=== PATIENT | male | born 1945 | race Caucasian/White ===

== ENCOUNTER 2022-05-15 06:35 | Day surgery (SDC) | payer BC ==
[2022-05-14 11:53] LABS: BASOPHILS # (AUTO) 0.1 X10'3 (0-0.2); EOSINOPHILS # (AUTO) 0.3 X10'3 (0-0.9); EOSINOPHILS % (AUTO) 3.5 % (0-6); HEMATOCRIT 40.4 % (42.0-52.0); HEMOGLOBIN 13.5 g/dl (14.0-17.9); LYMPHOCYTES # (AUTO) 1.9 X10'3 (1.1-4.8); LYMPHOCYTES % (AUTO) 22.7 % (21-51); MEAN CORPUSCULAR HEMOGLOBIN 30.6 PG (27.0-31.0); MEAN CORPUSCULAR HGB CONC 33.5 g/dL (33.0-36.5); MEAN CORPUSCULAR VOLUME 91.4 FL (78-98); MEAN PLATELET VOLUME 7.2 FL (7.4-10.4); MONOCYTES # (AUTO) 0.8 X10'3 (0-0.9); MONOCYTES % (AUTO) 9.1 % (2-12); NEUTROPHILS # (AUTO) 5.5 X10'3 (1.8-7.7); NEUTROPHILS % (AUTO) 63.7 % (42-75); PLATELET COUNT 304 X10'3 (140-440); RED BLOOD COUNT 4.42 X10'6 (4.70-6.10); RED CELL DISTRIBUTION WIDTH 13.9 % (11.5-14.5); WHITE BLOOD COUNT 8.6 X10'3 (4.5-11.0)
[2022-05-14 12:08] LABS: ALANINE AMINOTRANSFERASE 35 U/L (12-78); ALBUMIN 3.9 G/DL (3.4-5.0); ALBUMIN/GLOBULIN RATIO 1.1 (1.1-1.5); ALKALINE PHOSPHATASE 49 IU/L (46-116); ANION GAP 10 (8-16); APTT 27 SECONDS (22-32); ASPARTATE AMINO TRANSFERASE 22 U/L (10-37); BILIRUBIN,TOTAL 0.7 MG/DL (0.1-1.0); BLOOD UREA NITROGEN 30 MG/DL (7-18); BUN/CREATININE RATIO 21.6 (5.4-32.0); CALCIUM 9.1 MG/DL (8.5-10.1); CHLORIDE 102 MMOL/L (99-107); CREATININE 1.39 MG/DL (0.60-1.10); GLUCOSE 124 MG/DL (70-104); POTASSIUM 3.9 MMOL/L (3.5-5.1); SODIUM 137 MMOL/L (135-145); TOTAL CARBON DIOXIDE 24.9 MMOL/L (24-32); TOTAL PROTEIN 7.5 G/DL (6.4-8.2); eGFR 50 ML/MIN
[~2022-05-15] VITALS: Ht 165.1 cm; Wt 113.2 kg
[2022-05-15] VITALS (13 sets, daily range): BP systolic 129–166; BP diastolic 63–96
[2022-05-15] MEDS ORDERED: nitroGLYCERIN 0.4mg SUBLingual tab SL PRN ×2 (06:50→11:00)
[2022-05-15] MEDS ORDERED: diphenhydrAMINE 25mg capsule PO PRN (06:50)
[2022-05-15] MEDS ORDERED: LORazepam 0.5 MG tablet PO PRN (06:50)
[2022-05-15] MEDS ORDERED: normal saline 1,000 ML IV SCH (06:50)
[2022-05-15] MEDS ORDERED: dextrose 50%-water 50ml dispensing syringe IV PRN ×2 (06:55)
[2022-05-15] MEDS ORDERED: MESSAGE TO PHARMACY PO ONE (06:55)
[2022-05-15] MEDS ORDERED: DEXTROSE 15 GM of carb/4 tabs (each vial/BOTTLE has 4 tablets) PO PRN ×2 (06:55)
[2022-05-15] MEDS ORDERED: insulin Lispro (HumaLOG) vial - multi-dose SQ SCH (06:55)
[2022-05-15] MEDS ORDERED: glucagon, human recombinant 1mg kit SUBCUT PRN (06:55)
[2022-05-15] MEDS ORDERED: METF-1203 PO (07:00)
[2022-05-15] MEDS ORDERED: METO50TA16 PO (07:00)
[2022-05-15] MEDS ORDERED: VALA500T41 PO (07:00)
[2022-05-15] MEDS ORDERED: ATOR20TA66 PO (07:00)
[2022-05-15] MEDS ORDERED: LOSA50TA64 PO (07:00)
[2022-05-15] MEDS ORDERED: ACET-3209 PO (07:00)
[2022-05-15] MEDS ORDERED: HYDR25TA4 PO (07:00)
[2022-05-15] MEDS ORDERED: fentaNYL/PF 50MCG/1 ML 2ML syringe ONE (08:08)
[2022-05-15] MEDS ORDERED: iohexol 350MG/ML 100ml bottle IV ONE (08:09)
[2022-05-15] MEDS ORDERED: heparin 1,000 UNITS/NS 500ml 500 ML ONE ×3 (08:09→09:48)
[2022-05-15] MEDS ORDERED: LIDOcaine 1% 30ml preserv. free vial ONE (08:09)
[2022-05-15] MEDS ORDERED: midazolam 1 mg/ML 2ml injection ONE (08:09)
[2022-05-15] MEDS ORDERED: iohexol 350 MG/ML 50ML vial IV ONE (09:36)
[2022-05-15] MEDS ORDERED: hydrALAZINE 20mg/ml inj. IV ONE (10:18)
[2022-05-15] MEDS ORDERED: HYDROcodone/acetaminophen 10/325mg tab PO PRN (11:00)
[2022-05-15] MEDS ORDERED: normal saline 1000ml 1,000 ML IV SCH (11:00)
[2022-05-15] MEDS ORDERED: ondansetron/PF 4mg/2ml inj IV PRN (11:00)
[2022-05-15] MEDS ORDERED: HYDROcodone/acetaminophen 5mg/325mg tablet PO PRN (11:00)
[2022-05-15] MEDS ORDERED: proCHLORperazine 10 MG/2 ml inj IV PRN (11:00)
[2022-05-15] MEDS ORDERED: OXAZEpam 15mg capsule PO PRN (11:00)
[2022-05-15] MEDS ORDERED: insulin glargine (Lantus) pen - multi-dose SQ SCH (21:00)
[2022-05-16] MEDS ORDERED: FLU VACC QS2022-23(6MOS UP)/PF 60 MCG/0.5 ML SYRINGE IMVAC ONE (13:45)
== END 2022-05-15 17:05 | disposition home or self-care (01) ==
LOC: SSTAY O 06:35
PROVIDERS: ATTEND Internal Medicine Cardiovascular Disease
DX: R94.39 Abnormal result of other cardiovascular function study (principal); I25.10 Atherosclerotic heart disease of native coronary artery without angina pectoris; I10 Essential (primary) hypertension; E11.9 Type 2 diabetes mellitus without complications; E78.5 Hyperlipidemia, unspecified; N40.1 Benign prostatic hyperplasia with lower urinary tract symptoms; E66.9 Obesity, unspecified; Z68.41 Body mass index [BMI] 40.0-44.9, adult; G47.30 Sleep apnea, unspecified; Z79.01 Long term (current) use of anticoagulants; Z79.899 Other long term (current) drug therapy; Z79.84 Long term (current) use of oral hypoglycemic drugs; Z88.0 Allergy status to penicillin; Z88.2 Allergy status to sulfonamides; Z98.890 Other specified postprocedural states; Z87.891 Personal history of nicotine dependence
CPT/HCPCS: 36415; 71046; 80053; 82948; 85025; 85610; 85730; 93458; 99152; 99153; C1760; C1769; J0360; J1644; J1815; J2250; J3010; J3490; J7030; Q0163; Q9967; 90686; A6258

== ENCOUNTER 2022-08-12 10:58 | Inpatient (IN) | payer BC ==
[2022-08-08 15:24] LABS: BASOPHILS # (AUTO) 0.1 X10'3 (0-0.2); EOSINOPHILS # (AUTO) 0.2 X10'3 (0-0.9); EOSINOPHILS % (AUTO) 3.1 % (0-6); LYMPHOCYTES # (AUTO) 1.7 X10'3 (1.1-4.8); LYMPHOCYTES % (AUTO) 22.4 % (21-51); MEAN CORPUSCULAR HEMOGLOBIN 30.6 PG (27.0-31.0); MEAN CORPUSCULAR HGB CONC 33.1 g/dL (33.0-36.5); MEAN CORPUSCULAR VOLUME 92.4 FL (78-98); MEAN PLATELET VOLUME 7.6 FL (7.4-10.4); MONOCYTES # (AUTO) 0.6 X10'3 (0-0.9); MONOCYTES % (AUTO) 7.5 % (2-12); NEUTROPHILS # (AUTO) 4.9 X10'3 (1.8-7.7); PRE OP HEMATOCRIT 41.1 % (42.0-52.0); PRE OP HEMOGLOBIN 13.6 g/dL (14.0-17.9); PRE OP PLATELET COUNT 265 X10'3 (140-440); RED BLOOD COUNT 4.45 X10'6 (4.70-6.10); RED CELL DISTRIBUTION WIDTH 14.2 % (11.5-14.5)
[2022-08-08 15:24] LABS: CLARITY,URINE CLEAR (Clear); COLOR,URINE YELLOW (Yellow); GLUCOSE, URINE NEGATIVE (Neg); KETONES,URINE NEGATIVE (Neg); LEUKOCYTE ESTERASE ,URINE NEGATIVE (Neg); NITRITES, URINE NEGATIVE (Neg); OCCULT BLOOD,URINE NEGATIVE (Neg); PROTEIN,URINE NEGATIVE (Neg); UROBILINOGEN,URINE 0.2 E.U/dL (0.2-1.0)
[2022-08-08 15:36] LABS: UA COLLECTION TYPE VOIDED
[2022-08-08 15:37] LABS: PRE OP PROTIME 10.6 SECONDS (9.0-12.0)
[2022-08-08 15:39] LABS: ALBUMIN 3.6 G/DL (3.4-5.0); ALKALINE PHOSPHATASE 47 IU/L (46-116); BLOOD UREA NITROGEN 30 MG/DL (7-18); BUN/CREATININE RATIO 20.5 (10.0-20.0); CALCIUM 8.4 MG/DL (8.5-10.1); CHLORIDE 106 MMOL/L (99-107); CREATININE 1.46 MG/DL (0.60-1.10); PRE OP ALT 29 U/L (30-65); PRE OP ANION GAP 11 (8-16); PRE OP AST 20 U/L (10-37); PRE OP BILIRUB, TOTAL 0.3 MG/DL (0.0-1.0); PRE OP GLUCOSE 158 MG/DL (70-104); PRE OP POTASSIUM 3.7 MMOL/L (3.4-5.1); PRE OP SODIUM 142 MMOL/L (135-145); TOTAL CARBON DIOXIDE 25.3 MMOL/L (24-32); TOTAL PROTEIN 7.1 G/DL (6.4-8.2); eGFR 47 ML/MIN
[2022-08-12] VITALS (12 sets, daily range): BP systolic 158–205; BP diastolic 63–97
[~2022-08-12] VITALS: Ht 165.1 cm; Wt 112.0 kg
[~2022-08-12 10:58] MED LIST: ATOR20TA66 PO; HYDR25TA4 PO; LOSA50TA64 PO; METF-1203 PO; METO50TA16 PO; VALA500T41 PO; cefazolin 2gm/D5W 100mL 100 ML IV ONE; famotidine 20mg tablet PO ONE; ringers solution, lacted 1,000 ML IV SCH
[2022-08-12] MEDS ORDERED: ROPIVAcaine 0.5% (5mg/ml) 30ml vial ONE ×2 (14:37→19:29)
[2022-08-12] MEDS ORDERED: ketorolac trometh. 30mg/ml inj. ONE (14:37)
[2022-08-12] MEDS ORDERED: vancomycin 1,000mg inj ONE (17:57)
[2022-08-12] MEDS ORDERED: tranexamic acid 100mg/ml inj. ONE (18:11)
[2022-08-12] MEDS ORDERED: ondansetron/PF 4mg/2ml inj IV PRN ×2 (18:45→19:10)
[2022-08-12] MEDS ORDERED: naloxone 0.4 mg/ml inj IV PRN (18:45)
[2022-08-12] MEDS ORDERED: diphenhydrAMINE 25mg capsule PO PRN (18:45)
[2022-08-12] MEDS ORDERED: acetaminophen 325mg tablet PO PRN (18:45)
[2022-08-12] MEDS: potassium cl 20mEq in 1/2 NS 1,000 ML IV SCH (18:45)
[2022-08-12] MEDS ORDERED: morphine 2 MG/ML inj. syringe IV PRN (19:10)
[2022-08-12] MEDS ORDERED: ringers solution, lacted 1,000 ML IV SCH (19:10)
[2022-08-12] MEDS ORDERED: proCHLORperazine 10 MG/2 ml inj IV PRN (19:10)
[2022-08-12] MEDS ORDERED: meperidine/PF 25mg/ml syringe IV PRN ×3 (19:10)
[2022-08-12] MEDS ORDERED: morphine 4 MG/ML inj SYRINge IV PRN (19:10)
[2022-08-12] MEDS ORDERED: fentaNYL/PF 50MCG/1 ML 2ML syringe ONE (19:15)
[2022-08-12] MEDS ORDERED: midazolam 1 mg/ML 2ml injection ONE (19:17)
[2022-08-12] MEDS ORDERED: rocuronium 10mg/ml inj IV ONE (20:57)
[2022-08-12] MEDS ORDERED: propofol inj 20 ML IV ONE (20:57)
[2022-08-12] MEDS ORDERED: sugammadex 200mg/2ml injection IV ONE (21:48)
--- NOTE | 2022-08-12 22:16 | NUR ---
Received from OR via , accompanied by Anesthesiologist DR BENITEZ and report given by Anesthesiolgist. VS ELEVATED. ON 10 LITERS WITH MASK AND LMA. IV 20G LEFT HAND. DRESSING AND BANDAGE WITH WRAP ON RIGHT SHOULDER
[2022-08-12] MEDS: labetalol 20mg/4ml (5mg/ml) syringe IV PRN ×4 (22:17→23:09)
[2022-08-12] MEDS ORDERED: hydrALAZINE 20mg/ml inj. IV PRN (22:35)
[2022-08-12] MEDS ORDERED: ipratropium/albuterol 3ml nebule NEB PRN (22:45)
--- NOTE | 2022-08-12 23:00 | NUR ---
BLOOD SUGAR IS 146
--- NOTE | 2022-08-12 23:09 | NUR ---
PER DR LEBRON GIVE PATIENT UP TP 30MG OF LABATELOL BEFORE STARTING HYDRALAZINE.
--- NOTE | 2022-08-12 23:26 | NUR ---
PATIENT MEETS DISCHARGE CRITERIA. VSS. BLOOD SUGAR 146. IV IS INTACT. TOOK HIM TO THE FLOOR WITH HIS C-PAP. NURSE AT BEDSIDE. BED LOWERED AND LOCKED WITH CALL LIGHT IN REACH Addendum: 08/12/22 at 2352 by Fanny Hancock RN Amended: Links added.
[2022-08-12] MEDS ORDERED: glucagon, human recombinant 1mg kit SUBCUT PRN (23:45)
[2022-08-12] MEDS ORDERED: insulin Lispro (HumaLOG) vial - multi-dose SQ SCH (23:45)
[2022-08-12] MEDS ORDERED: MESSAGE TO PHARMACY PO ONE (23:45)
[2022-08-12] MEDS ORDERED: amLODIPine 5mg tablet PO ONE (23:45)
[2022-08-12] MEDS ORDERED: dextrose 50%-water 50ml dispensing syringe IV PRN ×2 (23:45)
[2022-08-12] MEDS ORDERED: DEXTROSE 15 GM of carb/4 tabs (each vial/BOTTLE has 4 tablets) PO PRN ×2 (23:45)
[2022-08-13] VITALS (11 sets, daily range): BP systolic 130–159; BP diastolic 64–88
[2022-08-13] MEDS ORDERED: clindamycin-Cleocin 900mg/D5W 50 ML IV SCH
[2022-08-13] MEDS: cefazolin 2gm/D5W 100mL 100 ML IV SCH ×2 (00:54→08:49)
[2022-08-13] MEDS: oxyCODONE IR 5mg (immed. release) tablet PO PRN ×2 (05:45→16:03)
--- NOTE | 2022-08-13 06:29 | NUR ---
Patient in room [facility]. I have received report from Romy ARRIAGA and had the opportunity to ask questions and assume patient care.
--- NOTE | 2022-08-13 06:30 | NUR ---
Problems reprioritized. Patient report given, questions answered & plan of care reviewed with PAULINO DOLL.
[2022-08-13 07:20] LABS: ANION GAP 18 (8-16); CHLORIDE 101 MMOL/L (99-107); POTASSIUM 5.3 MMOL/L (3.5-5.1); SODIUM 138 MMOL/L (135-145); TOTAL CARBON DIOXIDE 19.3 MMOL/L (24-32)
[2022-08-13] MEDS ORDERED: losartan 50mg tablet PO SCH (08:00)
[2022-08-13] MEDS ORDERED: metFORMIN 500mg tablet PO SCH (08:00)
[2022-08-13] MEDS ORDERED: metoprolol tartrate 50mg tablet PO SCH (08:00)
[2022-08-13] MEDS ORDERED: HYDROchlorothiazide 25mg tablet PO SCH (08:00)
[2022-08-13] MEDS ORDERED: valacyclovir 500mg tablet PO SCH (08:00)
[2022-08-13] MEDS ORDERED: aspirin 325mg tablet PO SCH (08:30)
[2022-08-13 08:42] LABS: BASOPHILS % (AUTO) 0.1 % (0-1); EOSINOPHILS % (AUTO) 0 % (0-6); HEMATOCRIT 40.7 % (42.0-52.0); HEMOGLOBIN 13.5 g/dl (14.0-17.9); LYMPHOCYTES # (AUTO) 0.7 X10'3 (1.1-4.8); LYMPHOCYTES % (AUTO) 6.1 % (21-51); MEAN CORPUSCULAR HEMOGLOBIN 30.6 PG (27.0-31.0); MEAN CORPUSCULAR HGB CONC 33.2 g/dL (33.0-36.5); MEAN CORPUSCULAR VOLUME 92.1 FL (78-98); MEAN PLATELET VOLUME 7.7 FL (7.4-10.4); MONOCYTES # (AUTO) 0.8 X10'3 (0-0.9); MONOCYTES % (AUTO) 6.2 % (2-12); NEUTROPHILS # (AUTO) 10.7 X10'3 (1.8-7.7); NEUTROPHILS % (AUTO) 87.6 % (42-75); PLATELET COUNT 290 X10'3 (140-440); RED BLOOD COUNT 4.41 X10'6 (4.70-6.10); WHITE BLOOD COUNT 12.2 X10'3 (4.5-11.0)
[2022-08-13] MEDS: potassium cl 20mEq in 1/2 NS 1,000 ML IV SCH (08:44)
--- NOTE | 2022-08-13 11:56 | NUR ---
Joint surgery consult: Pt s/p R shoulder surgery this admit per EMR. Pt seen by ROBERT for written/verbal high protein diet ed w/ RD contact information provided. ROBERT encouraged pt to contact dietitian's office if further nutrition questions/concerns. Addendum: 08/13/22 at [address] Amended: Links added.
--- NOTE | 2022-08-13 13:00 | NUR ---
Patient refusing insulin at this time, he reports that he does not take any at home. Education provided re diabetes and insulin, patient states understanding. Still refusing s/p education. Dr. Miner notified and aware, no new orders at this time.
[2022-08-13 14:16] LABS: BASOPHILS % (AUTO) 0.1 % (0-1); EOSINOPHILS % (AUTO) 0 % (0-6); HEMATOCRIT 40.4 % (42.0-52.0); HEMOGLOBIN 13.3 g/dl (14.0-17.9); LYMPHOCYTES # (AUTO) 1.1 X10'3 (1.1-4.8); LYMPHOCYTES % (AUTO) 7.8 % (21-51); MEAN CORPUSCULAR HEMOGLOBIN 30.2 PG (27.0-31.0); MEAN CORPUSCULAR HGB CONC 32.9 g/dL (33.0-36.5); MEAN CORPUSCULAR VOLUME 91.9 FL (78-98); MEAN PLATELET VOLUME 7.6 FL (7.4-10.4); MONOCYTES # (AUTO) 1.3 X10'3 (0-0.9); MONOCYTES % (AUTO) 9.2 % (2-12); NEUTROPHILS # (AUTO) 11.4 X10'3 (1.8-7.7); NEUTROPHILS % (AUTO) 82.9 % (42-75); PLATELET COUNT 302 X10'3 (140-440); RED BLOOD COUNT 4.39 X10'6 (4.70-6.10); WHITE BLOOD COUNT 13.7 X10'3 (4.5-11.0)
[2022-08-13 14:23] LABS: ALBUMIN 3.6 G/DL (3.4-5.0); ANION GAP 14 (8-16); BLOOD UREA NITROGEN 26 MG/DL (7-18); BUN/CREATININE RATIO 19.4 (10.0-20.0); CALCIUM 8.7 MG/DL (8.5-10.1); CHLORIDE 99 MMOL/L (99-107); CREATININE 1.34 MG/DL (0.60-1.10); GLUCOSE 172 MG/DL (70-104); POTASSIUM 3.7 MMOL/L (3.5-5.1); SODIUM 135 MMOL/L (135-145); TOTAL CARBON DIOXIDE 22.4 MMOL/L (24-32); eGFR 52 ML/MIN
--- NOTE | 2022-08-13 14:39 | NUR ---
Message: Tre Reyes: Lab results are in :) Addendum: 08/13/22 at 1501 [address] LVN [address]. Costello called and stated that patient is cleared medically from him for discharge. Ordered LN to call Dr. Miner for clearance, call placed to Dr. Miner [phone], no answer. Left VM requesting call back Addendum: 08/13/22 at [address] LVN [address] Miner called and is agreeable to discharge. He provided orders for post op care: Sling to be worn at all times unless told otherwise by Dr. Miner. You are able to move your hand, wrist, and elbow, but do not move your shoulder. Do not bear weight on your right arm. You can remove your dressing in 2 days. If your wound is dry and does not have any drainage then you can shower. Follow up with Dr. Miner as scheduled and take your medication as ordered. For any questions please call Dr. Miner's office. Dr. Mienr stated that he will need to put in some orders for pain medication and he will do that when he has a chance. Can follow with discharge once entered. Awaiting orders Addendum: 08/13/22 at 1634 by Angella Felder LVN Orders sent and patient confirmed. Stated that he received a text from his pharmacy for Oxy IR.
[2022-08-13] MEDS ORDERED: ASPI-1 PO (14:41)
--- NOTE | 2022-08-13 16:00 | NUR ---
I have reviewed and agree with interventions, assessments and documentation by Angella Hernandez LVN.
--- NOTE | 2022-08-13 17:20 | NUR ---
Patient is stable and appropriate for discharge. PIV removed, cannula intact- patient tolerated well. 1 per assist provided to aide in dressing in personal clothes. Discharge paperwork reviewed and education provided with patient and his . Both verbalized understanding. Patient assisted out of facility via w/c by LN and ind into vehicle. Patient was encouraged to follow up with PCP and to appear at scheduled appts with Dr. Miner. All belongings accounted for and sent home with patient
[2022-08-13] MEDS ORDERED: atorvastatin 20mg tablet PO SCH (21:00)
== END 2022-08-13 17:15 | disposition home health service (06) | DRG 483 ==
LOC: PAS IN 10:58 → SUR 3N 23:40
PROVIDERS: ADMIT Specialist; ATTEND Family Medicine
PROC: 0LS30ZZ Reposition Right Upper Arm Tendon, Open Approach (ICD-10-PCS; 2022-08-12)
PROC: 0RRJ00Z Replacement of Right Shoulder Joint with Reverse Ball and Socket Synthetic Substitute, Open Approach (ICD-10-PCS; principal; 2022-08-12 19:17)
DX: M19.011 Primary osteoarthritis, right shoulder (principal); E11.9 Type 2 diabetes mellitus without complications; I25.10 Atherosclerotic heart disease of native coronary artery without angina pectoris; G47.33 Obstructive sleep apnea (adult) (pediatric); I10 Essential (primary) hypertension; Z88.0 Allergy status to penicillin; Z88.2 Allergy status to sulfonamides; Z79.899 Other long term (current) drug therapy
CPT/HCPCS: 36415; 71046; 73020; 73030; 76000; 80048; 80051; 80053; 81003; 82948; 85025; 85610; 85730; 86885; 86900; 86901; 87081; 94640; 94760; 97161; 97530; A4565; A4615; A4618; A6455; A7000; C1776; G0378; J0690; J1815; J1885; J2250; J2270; J2704; J2795; J3010; J3370; J3480; J3490; J7120

== ENCOUNTER 2022-12-01 09:57 | Emergency (ER) | payer BC ==
[~2022-12-01] VITALS: Ht 165.1 cm; Wt 113.6 kg
[~2022-12-01 09:57] MED LIST changes: +ASPI-1 PO; -cefazolin 2gm/D5W 100mL 100 ML IV ONE; -famotidine 20mg tablet PO ONE; -ringers solution, lacted 1,000 ML IV SCH
[2022-12-01 10:13] VITALS: TEMP 97.9
[2022-12-01] MEDS ORDERED: LIDOcaine 5% patch TP STA (10:53)
[2022-12-01] MEDS ORDERED: acetaminophen w/codeine (30MG) #3 tablet PO ONE (10:55)
[2022-12-01] MEDS ORDERED: diazepam 5mg tablet PO ONE (10:55)
[2022-12-01] MEDS ORDERED: orphenadrine citrate 60mg/2ml inj. IM ONE (10:55)
[2022-12-01 11:55] VITALS: BP 184/92; PULSE 68; RESP 18; O2SAT 96
[2022-12-01] MEDS ORDERED: CYCL-1 PO (12:36)
[2022-12-01] MEDS ORDERED: ACET-1059 PO (12:36)
== END 2022-12-01 13:20 | disposition home or self-care (01) ==
LOC: ER 10:01
DX: M54.42 Lumbago with sciatica, left side (principal); G89.29 Other chronic pain; Z88.0 Allergy status to penicillin; Z88.2 Allergy status to sulfonamides; Z79.899 Other long term (current) drug therapy; Z79.82 Long term (current) use of aspirin; Z79.1 Long term (current) use of non-steroidal anti-inflammatories (NSAID)
CPT/HCPCS: 96372; 99284; J2360

== ENCOUNTER 2025-02-03 12:28 | Outpatient (CLI) | payer MEDICARE, BC ==
[~2025-02-03] VITALS: Ht 163.8 cm; Wt 104.3 kg
[~2025-02-03 12:28] MED LIST changes: +AMLO5TAB PO; -ATOR20TA66 PO; -HYDR25TA4 PO; +LACT1CAP65 PO; -LOSA50TA64 PO; +MAGN400C PO; -METO50TA16 PO; +MULT-1085 PO; +OLME20TA69 PO; +PANT40TA54 PO; +SIME80TA73 PO
[2025-02-03 13:20] LABS: ABG BASE EXCESS -3.0 mmol/L (-2.0-3.0); ABG HCO3 20.3 mmol/L (21.0-28.0); ABG OXYGEN SATURATION 96.2 % (94.0-98.0); ABG PCO2 (T) 31.6 mmHg (35.0-48.0); ABG PH (T) 7.426 (7.350-7.450); ABG PO2 (T) 83.8 mmHg (83.0-108.0); ALLEN'S TEST POSITIVE; FCOHb 0.3 % (0.5-1.5); FHHb 3.8 % (0.0-5.0); FIO2 21.0 mmHg/%; FMetHb 0.3 % (0.0-1.5); FO2Hb 95.6 % (94.0-98.0); MODE ROOM AIR; PATIENT TEMPERATURE 37.0; TOTAL HEMOGLOBIN 14.0 G/dl (13.5-17.5)
[2025-02-03] MEDS: albuterol 2.5 MG/3 ML nebule NEB ONE (14:11)
[2025-02-03 14:14] VITALS: PULSE 80; RESP 16; O2SAT 96
[2025-02-03 14:26] VITALS: PULSE 62; RESP 18
[2025-02-03 14:30] VITALS: BP 144/81; PULSE 77; RESP 20; O2SAT 94
--- NOTE | 2025-02-04 16:15 | PROCEDURE NOTE - Respiratory ---
Procedure Note-Respiratory Providers to CC Copies To 1: RADHA BAXTER MD; KERRY DARBY MD Procedure Name: This is a complete pulmonary function study dated February 03, 2025. Hemoglobin measurement was done as part of the study. There was also a room air blood gas obtained from this patient on the same date. The patient also completed a 6 minute walk test. Spirometry measurements: Both the forced vital capacity and the FEV1 are no rmal. The FEV1 ratio is borderline reduced. Some of the flow rates are borderline reduced. After inhaled bronchodilator was administered, some of the flow rates show minimal improvement. Lung volume measurements: The total lung capacity and the functional residual capacity are both normal. There is no evidence for restrictive lung disease. Lung diffusion measurement: The DLCO measurement is normal. Both the KVO measurement and the alveolar volume measurements are normal. It is noted that the hemoglobin measurement is in the normal range. Airway resistance measurement: Airway resistance is normal. Conclusion: This study is borderline abnormal. There is evidence for obstructive ventilatory defect although it appears to be exceedingly mild. The patient seems to show slight improvement with inhaled bronchodilator. These findings suggests very minimal COPD. The lung diffusion is normal. A blood gas was drawn from this patient while the patient was breathing ambient air. The blood pH is normal. The pCO2 is slightly reduced at 32 mmHg. The room air PO2 is normal at 83 mmHg. The patient completely 6 minute walk test demonstrating that he can walk 780 ft during a 6 minute test. There was no evidence of desaturation during the test. We have no previous studies for comparison. AUTUMN WONG MD Feb 04, 2025 16:15
== END 2025-02-03 23:59 | disposition home or self-care (01) ==
LOC: RT 12:28
PROVIDERS: ATTEND Internal Medicine Critical Care Medicine
DX: J44.9 Chronic obstructive pulmonary disease, unspecified (principal); R06.02 Shortness of breath; R06.00 Dyspnea, unspecified
CPT/HCPCS: 36600; 82803; 85018; 94060; 94727; 94729; 94760